=== PATIENT | male | born 1980 | race Caucasian/White ===

== ENCOUNTER 2024-07-01 08:33 | Emergency (ER) | payer BC, SELFPAY ==
[2024-07-01] MEDS ORDERED: Nitroglycerin 0.4 MG TAB 1 EACH ONE (08:50)
[2024-07-01] MEDS ORDERED: Aspirin Chewable 81 MG TAB ONE (08:51)
[2024-07-01 09:00] LABS: #Basophils 0.1 thou/uL (0.0-0.2); #Eosinphils 0.1 thou/uL (0.0-0.7); #Lymphocytes 1.6 thou/uL (1.20-3.40); #Monocytes 0.7 thou/uL (0.11-0.59); #Neutrophils 4.2 thou/uL (1.40-6.50); %Basophils 1.4 % (0.0-1.0); %Eosinophils 1.4 % (0.0-10.0); %Lymphocytes 23.3 % (21.0-51.0); %Monocytes 10.7 % (0.0-10.0); %Neutrophils 63.1 % (42.0-75.0); Hematocrit 50.1 % (42.0-52.0); Hemoglobin 15.9 g/dL (14.0-18.0); Mean Corpuscular HGB CONC 31.8 g/dL (32.0-36.0); Mean Corpuscular Hemoglobin 28.4 pg (27.0-31.0); Mean Corpuscular Volume 89.2 fl (78.0-98.0); Mean Platelet Volume 7.3 fL (7.4-10.4); Platelet Count 271 10x3/uL (130-400); RBC Distribution Width 11.3 % (11.5-14.5); Red Blood Cell (RBC) Count 5.62 mill/uL (4.70-6.10); White Blood Cell (WBC) Count 6.7 10x3/uL (4.8-10.8)
[2024-07-01] MEDS ORDERED: Iopamidol 370 76% 100 ML VIAL ONE (09:00)
[2024-07-01 09:11] LABS: ALT (SGPT) 20 U/L (8-55); AST (SGOT) 16 U/L (5-34); Albumin 3.9 g/dL (3.5-5.0); Alkaline Phosphatase 52 U/L (40-110); Anion Gap 15 mmol/L (10-20); BUN (Urea Nitrogen) 12 mg/dL (8.9-20.6); Calc. Creatinine Clearance 0 mL/min (70-130); Calcium 9.4 mg/dL (7.8-10.44); Carbon Dioxide 23 mmol/L (22-29); Chloride 105 mmol/L (98-107); Estimated GFR 76; Globulin 3.3 g/dL (2.4-3.5); Glucose 92 mg/dL (70-105); Lipase 48 U/L (8-78); Potassium 4.4 mmol/L (3.5-5.1); Protein, Total 7.2 g/dL (6.0-8.3); Sodium 139 mmol/L (136-145)
[2024-07-01 09:12] LABS: Troponin I Less than 0.010 ng/mL (< 0.028)
[2024-07-01 12:14] LABS: Troponin I Less than 0.010 ng/mL (< 0.028)
== END 2024-07-01 12:21 | disposition home or self-care (01) ==
LOC: MADERS 08:33
DX: K20.90 Esophagitis, unspecified without bleeding (principal); D35.02 Benign neoplasm of left adrenal gland; K44.9 Diaphragmatic hernia without obstruction or gangrene; R00.1 Bradycardia, unspecified
CPT/HCPCS: 71046; 71275; 80053; 83690; 84484; 85025; 85379; 93005; 94760; Q9967